=== PATIENT | female | born 1935 | race Caucasian/White ===

== ENCOUNTER 2016-10-24 17:20 | Emergency (ER) | payer MEDICARE, OTHER ==
[2016-10-24] MEDS ORDERED: Alum Hydroxide/Mag Hydroxide 15 ML, Lidocaine 2% 15 ML PO ONE ×2 (17:48)
[2016-10-24] MEDS ORDERED: Isosorbide Mononitrate 30 MG Tab.ER PO SCH (19:45)
[2016-10-24 19:54] VITALS: BP 158/68
--- NOTE | 2016-10-25 02:09 | ER ---
DATE SEEN: 10/24/2016 TIME SEEN: The patient was seen at 1745. CHIEF COMPLAINT: At 1630 hours today she had chest heaviness, onset an hour before coming to the ED. No radiation of this chest heaviness or pain to jaw, neck, arm or back. No lightheadedness, diaphoresis, diarrhea, back pain, leg pain, shortness of breath, coughing, history of long distance trip or recent surgery in the last 4 weeks. 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 She has hypertension, dyslipidemia, diabetes treated with metformin, fracture of left wrist. REVIEW OF SYSTEMS: HEENT: The patient denies headache, neck stiffness, compromise in vision, glaucoma. Rest of symptoms noted above. No cough. GI: Denies reflux, constipation, blood in the stool, black tarry stools, diarrhea, constipation. : Denies frequency, urgency, dysuria, loss of stool or urine; incontinence. MUSCULOSKELETAL: Denies musculoskeletal complaints, joint pains, muscle aches, myalgia. SOCIAL HISTORY: is . Nonsmoker and alcohol negative. No illicit drugs. PAST SURGICAL HISTORY: As noted above, fracture of left wrist. MEDICATIONS: 1. Vitamin D. 2. Flaxseed. 3. Lutein. 4. Metformin 500 mg b.i.d. 5. Cozaar 50 mg daily. 6. Cyanocobalamin 1000 mcg daily. 7. Fish oil. 8. Simvastatin 10 mg daily. PHYSICAL EXAMINATION: VITAL SIGNS: Blood pressure 156/68 after it was repeated, otherwise earlier was 167/81; heart rate 66 and regular; oxygen saturation 100% on room air; and respirations 16. GENERAL: Very pleasant, beautiful woman with an absolutely wonderful countenance and cheery disposition. HEENT: PERRLA intact. Pharynx without abnormality. No bruits in neck. No thyromegaly or masses in neck. No cervical adenopathy. LUNGS: Clear to auscultation without rales, rhonchi, or wheezes. HEART: S1, S2. No murmur. ABDOMEN: Soft. No irregularities. No abdominal discomfort. EXTREMITIES: Without abnormality. Deep tendon reflexes normal in upper and lower extremities, but hypoactive. NEUROLOGIC: Cranial nerves 2 through 12 intact. Oriented x3. Gait appropriate. Muscle strength upper and lower extremities. Speech appropriate. Thought content appropriate. DIAGNOSTIC STUDIES: EKG; sinus rhythm with nonspecific interventricular conduction defect. Chest x-ray, showing mild flattening of the diaphragms, more hyperaeration than anticipated for her age and she has never been a smoker; mild COPD. No evidence for infiltrate. Troponin is normal. CBC is normal with hemoglobin 12.3, white count 5800, normal differential. Sodium is slightly low at 134. She is not taking any water pills, but she is on Cozaar. Potassium 3.6, chloride 100, bicarb 27, creatinine 0.6, BUN 11. GFR greater than 66, and glucose reactive slightly elevated as it was 10/17/2013, today is 129, previously 142, this reflects her diabetes. Alkaline phosphate trace elevated 54. ASSESSMENT: 1. Chest pressure, possible atypical angina or stable angina. Trial of Imdur 30 mg tablet one given now and to use one daily, 20 tablets were given. Follow up with doctor in a week. If it is markedly worse, see the doctor earlier. 2. Status post subarachnoid hemorrhage. 3. Hypertension, treated. 4. Mild hyponatremia. Etiology may be secondary to salt restrictions. ADDITIONAL COMMENT: Patient discharged to follow up with MD 5-7 days. She takes probiotic daily. /[id number] MAEVE/DANI LEBLANC
--- NOTE | 2016-10-25 11:56 | CR ---
INDICATION: Chest heaviness. CHEST: Portable AP upright view of the chest was obtained 10/24/2016. No comparisons were available. The heart appeared prominent in size, the aorta tortuous with calcification in the arch. Overlying EKG leads are noted. Somewhat diminished bone density is suggested, compatible with osteoporosis. A definite active infiltrate or effusion was not identified. IMPRESSION: 1. No acute process. 2. ASHD. MTDD
== END 2016-10-24 20:00 | disposition home or self-care (01) ==
LOC: FB.ED 17:20
DX: R07.89 Other chest pain (principal); E87.1 Hypo-osmolality and hyponatremia
CPT/HCPCS: 36415; 71010; 80053; 84443; 84484; 85025; 85379; 93005; 99285; A9270; 99284

== ENCOUNTER 2019-02-25 14:09 | Emergency (ER) | payer OTHER, MEDICARE ==
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
[2019-02-25 17:55] VITALS: BP 160/72; PULSE 88
== END 2019-02-25 15:52 | disposition home or self-care (01) ==
LOC: FB.ED 14:09
DX: S40.012A Contusion of left shoulder, initial encounter (principal); S70.02XA Contusion of left hip, initial encounter; E11.9 Type 2 diabetes mellitus without complications; Z79.82 Long term (current) use of aspirin; Z79.899 Other long term (current) drug therapy; Z79.84 Long term (current) use of oral hypoglycemic drugs; Z86.73 Personal history of transient ischemic attack (TIA), and cerebral infarction without residual deficits; V43.52XA Car driver injured in collision with other type car in traffic accident, initial encounter
CPT/HCPCS: 36415; 71101-LT; 73502-LT; 81003; 82962; 85025; 99284-25

== ENCOUNTER 2019-03-07 05:55 | Inpatient (IN) | payer OTHER, MEDICARE ==
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
[2019-03-07] MEDS ORDERED: traMADol 50 MG Tab PO PRN (08:43)
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
[2019-03-07] MEDS: Naproxen 500 MG Tab PO SCH ×2 (09:27→21:12)
[2019-03-07] MEDS: Enoxaparin 40 MG/0.4 ML Syringe SUBCUT SCH (09:28)
[2019-03-07] MEDS: Lactobacillus Rhamnosus GG (Probiotic) Cap PO SCH (11:36)
[2019-03-07] MEDS: Fish Oil/Omega-3 Fatty Acids 1 Gm Cap PO SCH (11:36)
[2019-03-07] MEDS: Aspirin 81 MG Tab.EC PO SCH (11:36)
[2019-03-07] MEDS: Losartan 50 MG Tab PO SCH (11:36)
[2019-03-07] MEDS: Cholecalciferol (Vitamin D3) 25 MCG Tab PO SCH (11:36)
[2019-03-07] MEDS: Isosorbide Mononitrate 30 MG Tab.ER PO SCH (11:37)
[2019-03-07] MEDS: metFORMIN 500 MG Tab PO SCH ×2 (11:37→18:00)
[2019-03-07] MEDS: Cyanocobalamin (Vitamin B12) 1,000 MCG Tab PO SCH (11:37)
[2019-03-07] MEDS ORDERED: Insulin Lispro 100 Unit/ML 3 ML KwikPen SUBCUT SCH (12:00)
[2019-03-07] MEDS: Latanoprost 0.005% Ophth Soln 2.5 ML Bottle EYEBOTH SCH (21:13)
[2019-03-07] MEDS: Simvastatin 10 MG Tab PO SCH (21:14)
[2019-03-07] MEDS: Acetaminophen 500 MG Tab PO SCH (21:18)
[2019-03-08] MEDS: Acetaminophen 500 MG Tab PO SCH ×3 (06:17→21:23)
[2019-03-08] MEDS: Losartan 50 MG Tab PO SCH (08:54)
[2019-03-08] MEDS: metFORMIN 500 MG Tab PO SCH ×2 (08:54→17:59)
[2019-03-08] MEDS: Naproxen 500 MG Tab PO SCH ×2 (08:54→21:24)
[2019-03-08] MEDS: Isosorbide Mononitrate 30 MG Tab.ER PO SCH (08:55)
[2019-03-08] MEDS: Enoxaparin 40 MG/0.4 ML Syringe SUBCUT SCH (08:55)
[2019-03-08] MEDS: Lactobacillus Rhamnosus GG (Probiotic) Cap PO SCH (08:55)
[2019-03-08] MEDS: Aspirin 81 MG Tab.EC PO SCH (08:55)
[2019-03-08] MEDS: Fish Oil/Omega-3 Fatty Acids 1 Gm Cap PO SCH (08:55)
[2019-03-08] MEDS: Cyanocobalamin (Vitamin B12) 1,000 MCG Tab PO SCH (08:55)
[2019-03-08] MEDS: Cholecalciferol (Vitamin D3) 25 MCG Tab PO SCH (08:55)
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
[2019-03-08] MEDS: Latanoprost 0.005% Ophth Soln 2.5 ML Bottle EYEBOTH SCH (21:24)
[2019-03-08] MEDS: Simvastatin 10 MG Tab PO SCH (21:25)
[2019-03-09] MEDS: Acetaminophen 500 MG Tab PO SCH ×2 (05:16→12:43)
[2019-03-09] MEDS: Losartan 50 MG Tab PO SCH (08:44)
[2019-03-09] MEDS: metFORMIN 500 MG Tab PO SCH ×2 (08:44→18:20)
[2019-03-09] MEDS: Cholecalciferol (Vitamin D3) 25 MCG Tab PO SCH (08:45)
[2019-03-09] MEDS: Fish Oil/Omega-3 Fatty Acids 1 Gm Cap PO SCH (08:45)
[2019-03-09] MEDS: Naproxen 500 MG Tab PO SCH (08:45)
[2019-03-09] MEDS: Aspirin 81 MG Tab.EC PO SCH (08:45)
[2019-03-09] MEDS: Cyanocobalamin (Vitamin B12) 1,000 MCG Tab PO SCH (08:45)
[2019-03-09] MEDS: Isosorbide Mononitrate 30 MG Tab.ER PO SCH (08:45)
[2019-03-09] MEDS: Lactobacillus Rhamnosus GG (Probiotic) Cap PO SCH (08:45)
[2019-03-09 16:38] VITALS: BP 152/72; PULSE 67
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
== END 2019-03-09 19:10 | disposition home or self-care (01) | DRG 918 ==
LOC: FB.ED 05:55 → FB.MS 08:08
PROVIDERS: ADMIT Family Medicine; ATTEND Family Medicine
DX: T40.2X5A Adverse effect of other opioids, initial encounter (principal); R41.82 Altered mental status, unspecified; S32.9XXD Fracture of unspecified parts of lumbosacral spine and pelvis, subsequent encounter for fracture with routine healing; V89.2XXD Person injured in unspecified motor-vehicle accident, traffic, subsequent encounter; I10 Essential (primary) hypertension; E78.5 Hyperlipidemia, unspecified; E11.9 Type 2 diabetes mellitus without complications; Z86.73 Personal history of transient ischemic attack (TIA), and cerebral infarction without residual deficits; Z79.84 Long term (current) use of oral hypoglycemic drugs; Z79.82 Long term (current) use of aspirin; Z79.899 Other long term (current) drug therapy
CPT/HCPCS: 36415; 70450; 72125; 80048; 81001; 82962; 85025; 85610; 97161-GP; 99284-25; A9270-GY; J1650; J1815

== ENCOUNTER → 2022-05-24 | Day surgery (SDC) | payer MEDICARE, OTHER ==
[~2022-05-24] MED LIST: Lactated Ringers 1,000 ML IV PRN; acetaZOLAMIDE 500 MG Cap.ER PO ONE
== END ==
LOC: FB.SDS 06:00
PROVIDERS: ATTEND Ophthalmology
DX: E11.36 Type 2 diabetes mellitus with diabetic cataract (principal); H25.813 Combined forms of age-related cataract, bilateral; H40.1131 Primary open-angle glaucoma, bilateral, mild stage; H35.3131 Nonexudative age-related macular degeneration, bilateral, early dry stage; H40.1410 Capsular glaucoma with pseudoexfoliation of lens, right eye, stage unspecified; I10 Essential (primary) hypertension; K21.9 Gastro-esophageal reflux disease without esophagitis; M19.90 Unspecified osteoarthritis, unspecified site; E78.5 Hyperlipidemia, unspecified; Z86.39 Personal history of other endocrine, nutritional and metabolic disease; Z79.899 Other long term (current) drug therapy; Z88.8 Allergy status to other drugs, medicaments and biological substances; Z88.5 Allergy status to narcotic agent; Z90.49 Acquired absence of other specified parts of digestive tract; Z98.890 Other specified postprocedural states

== ENCOUNTER 2022-06-07 07:26 | Day surgery (SDC) | payer MEDICARE, OTHER ==
[~2022-06-07 07:26] MED LIST changes: -Lactated Ringers 1,000 ML IV PRN
[2022-06-07] MEDS ORDERED: Lactated Ringers 1,000 ML IV PRN (07:30)
[2022-06-07] MEDS ORDERED: Sodium Chloride 0.9% 10 ML Syringe FLUSH PRN (07:30)
[2022-06-07 08:15] VITALS: BP 150/63; PULSE 64
[2022-06-07] MEDS ORDERED: Midazolam 1 MG/ML 2 ML SDV IVPUSH ONE (09:20)
[2022-06-07] MEDS ORDERED: fentaNYL 100 MCG/2 ML SDV IVPUSH ONE (09:20)
[2022-06-07] MEDS ORDERED: acetaZOLAMIDE 500 MG Cap.ER PO ONE (09:30)
== END 2022-06-07 10:32 | disposition home or self-care (01) ==
LOC: FB.SDS 07:26
PROVIDERS: ATTEND Ophthalmology
DX: E11.36 Type 2 diabetes mellitus with diabetic cataract (principal); H25.813 Combined forms of age-related cataract, bilateral; H40.1131 Primary open-angle glaucoma, bilateral, mild stage; H35.3131 Nonexudative age-related macular degeneration, bilateral, early dry stage; I10 Essential (primary) hypertension; K21.9 Gastro-esophageal reflux disease without esophagitis; E78.5 Hyperlipidemia, unspecified; H91.93 Unspecified hearing loss, bilateral; N32.81 Overactive bladder; M19.90 Unspecified osteoarthritis, unspecified site; F17.200 Nicotine dependence, unspecified, uncomplicated; Z79.899 Other long term (current) drug therapy; Z88.8 Allergy status to other drugs, medicaments and biological substances; Z88.5 Allergy status to narcotic agent; Z98.890 Other specified postprocedural states; Z90.49 Acquired absence of other specified parts of digestive tract
CPT/HCPCS: 00142-QZ; A9270-GY; J2250; J3010; J3490; J7120; V2632

== ENCOUNTER 2024-02-28 00:42 | Inpatient (IN) | payer MEDICARE, OTHER ==
[2024-02-28 01:43] LABS: A/G RATIO 1.3; ALANINE AMINOTRANSFERASE,ALT 16 U/L (12-36); ALKALINE PHOSPHATASE 92 IU/L (56-112); ASPARTATE AMNIOTRANSFERASE,AST 19 IU/L (5-25); BILIRUBIN TOTAL 0.6 mg/dL (0.1-1.3); BLOOD UREA NITROGEN,BUN 14 mg/dL (7-18); BUN/CREATININE RATIO 15.6 (9-20); CALCIUM 9.1 mg/dL (8.6-10.2); CARBON DIOXIDE,CO2 21 mmol/L (21-32); CREATININE 0.9 mg/dL (0.55-1.02); ESTIMATED GFR 61 mL/min (>60); GLUCOSE RANDOM 133 mg/dL (80-116); POTASSIUM,K 4.4 mmol/L (3.5-5.3); PROTEIN TOTAL,TP 7.2 g/dL (6.0-8.0)
[2024-02-28 01:50] LABS: TROPONIN I 19.5 pg/mL (4.0-60.3)
[2024-02-28 01:53] LABS: BASOPHILS PERCENT AUTO 0.4 % (0.2-1.5); EOSINOPHILS ABSOLUTE AUTO 0.1 x10-3/uL (0.0-0.8); EOSINOPHILS PERCENT AUTO 1.3 % (0.6-8.1); HEMOGLOBIN 12.8 g/dL (11.4-15.5); LYMPHOCYTES PERCENT AUTO 9.4 % (18.4-52.1); MEAN CORPUSCULAR HEMOGLOBIN 29.3 pg (23.9-33.9); MEAN CORPUSCULAR HGB CONC 33.8 g/dL (31.9-34.8); MEAN CORPUSCULAR VOLUME 86.8 fL (76.7-100.5); MONOCYTES ABSOLUTE AUTO 0.8 x10-3/uL (0.3-1.0); NEUTROPHILS ABSOLUTE AUTO 8.4 x10-3/uL (1.5-6.3); NEUTROPHILS PERCENT AUTO 80.9 % (30.8-76.2); PLATELET COUNT,PLT 302 x10(3)uL (151-488); RED BLOOD CELL COUNT 4.38 x10(6)uL (3.60-5.20); RED CELL DISTRIBUTION WIDTH 13.1 % (12.3-16.5); WHITE BLOOD CELL COUNT,WBC 10.4 x10-3/uL (3.0-10.3)
[2024-02-28] MEDS: Ondansetron 4 MG/2 ML SDV IVPUSH ONE ×2 (01:56→02:50)
[2024-02-28 01:57] LABS: CHLORIDE,CL 86 mmol/L (100-110); SODIUM,NA 118 mmol/L (135-145)
[2024-02-28] MEDS: Sodium Chloride 0.9% 1,000 ML IV SCH ×2 (01:57→03:10)
[2024-02-28 02:09] LABS: LACTIC ACID 0.7 mmol/L (0.4-2.0)
[2024-02-28] MEDS ORDERED: Acetaminophen 325 MG Tab PO PRN (02:22)
[2024-02-28] MEDS: Meclizine 25 MG Tab PO PRN (03:14)
[2024-02-28] MEDS: Labetalol 20 MG/4 ML Syringe IVPUSH ONE (03:16)
[2024-02-28 03:26] LABS: BILIRUBIN,URINE NEGATIVE (NEGATIVE); GLUCOSE,URINE NORMAL (NORMAL); KETONES,URINE 15 mg/dL (NEGATIVE); LEUKOCYTE ESTERASE,URINE NEGATIVE (NEGATIVE); NITRITE,URINE NEGATIVE (NEGATIVE); OCCULT BLOOD,URINE NEGATIVE (NEGATIVE); PROTEIN,URINE NEGATIVE (NEGATIVE); UROBILINOGEN,URINE NORMAL (NEGATIVE)
[2024-02-28 03:27] LABS: APPEARANCE,URINE CLEAR (CLEAR); COLOR,URINE YELLOW (YELLOW)
[2024-02-28] MEDS ORDERED: Ondansetron 4 MG/2 ML SDV IV PRN (05:20)
[2024-02-28 06:44] LABS: BLOOD UREA NITROGEN,BUN 11 mg/dL (7-18); BUN/CREATININE RATIO 12.2 (9-20); CALCIUM 8.3 mg/dL (8.6-10.2); CARBON DIOXIDE,CO2 24 mmol/L (21-32); CHLORIDE,CL 91 mmol/L (100-110); CREATININE 0.9 mg/dL (0.55-1.02); ESTIMATED GFR 61 mL/min (>60); GLUCOSE RANDOM 129 mg/dL (80-116); POTASSIUM,K 4.4 mmol/L (3.5-5.3); SODIUM,NA 122 mmol/L (135-145)
[2024-02-28] MEDS ORDERED: Losartan 50 MG Tab PO SCH (09:00)
[2024-02-28] MEDS: Enoxaparin 40 MG/0.4 ML Syringe SUBCUT SCH (09:22)
[2024-02-28] MEDS: Isosorbide Mononitrate 30 MG Tab.ER PO SCH (09:22)
[2024-02-28] MEDS: Oxybutynin 5 MG Tab PO SCH (09:22)
[2024-02-28] MEDS: Sennosides/Docusate Sodium 50-8.6 MG Tab PO PRN (09:31)
[2024-02-28] MEDS: Losartan 25 MG Tab PO SCH (14:59)
[2024-02-28] MEDS: Saccharomyces Boulardii (Probiotic) 250 MG Cap PO SCH (17:08)
[2024-02-28] MEDS: Latanoprost 0.005% Ophth Soln 2.5 ML Bottle EYEBOTH SCH (20:37)
[2024-02-29 06:42] LABS: BASOPHILS PERCENT AUTO 0.3 % (0.2-1.5); EOSINOPHILS ABSOLUTE AUTO 0.2 x10-3/uL (0.0-0.8); EOSINOPHILS PERCENT AUTO 4.1 % (0.6-8.1); HEMATOCRIT 32.6 % (34.2-48.2); HEMOGLOBIN 11.3 g/dL (11.4-15.5); LYMPHOCYTES ABSOLUTE AUTO 0.9 x10-3/uL (1.0-4.4); LYMPHOCYTES PERCENT AUTO 16.6 % (18.4-52.1); MEAN CORPUSCULAR HEMOGLOBIN 30.2 pg (23.9-33.9); MEAN CORPUSCULAR HGB CONC 34.7 g/dL (31.9-34.8); MEAN PLATELET VOLUME 7.5 fL (7.1-12.4); MONOCYTES ABSOLUTE AUTO 0.6 x10-3/uL (0.3-1.0); MONOCYTES PERCENT AUTO 12.5 % (4.4-15.7); NEUTROPHILS ABSOLUTE AUTO 3.4 x10-3/uL (1.5-6.3); NEUTROPHILS PERCENT AUTO 66.5 % (30.8-76.2); PLATELET COUNT,PLT 257 x10(3)uL (151-488); RED BLOOD CELL COUNT 3.75 x10(6)uL (3.60-5.20); RED CELL DISTRIBUTION WIDTH 13.3 % (12.3-16.5); WHITE BLOOD CELL COUNT,WBC 5.2 x10-3/uL (3.0-10.3)
[2024-02-29 06:52] LABS: BLOOD UREA NITROGEN,BUN 8 mg/dL (7-18); CALCIUM 8.3 mg/dL (8.6-10.2); CARBON DIOXIDE,CO2 25 mmol/L (21-32); CHLORIDE,CL 102 mmol/L (100-110); CREATININE 0.8 mg/dL (0.55-1.02); EST CRCL DRUG DOSING (CG) 43.76 mL/min; ESTIMATED GFR 70 mL/min (>60); GLUCOSE RANDOM 96 mg/dL (80-116); POTASSIUM,K 4.3 mmol/L (3.5-5.3); SODIUM,NA 132 mmol/L (135-145)
[2024-02-29] MEDS: Bisacodyl 5 MG Tab PO PRN (09:52)
[2024-02-29] MEDS: Dextrose 5% in Water 1,000 ML IV SCH (10:02)
[2024-02-29] MEDS: Sodium Chloride 0.9% 1,000 ML IV SCH (13:10)
[2024-02-29] MEDS: Bisacodyl 5 MG Tab PO ONE (14:51)
[2024-02-29] MEDS: Sulfamethoxazole/Trimethoprim 800-160 MG Tab PO SCH (14:51)
[2024-03-01 07:46] LABS: BASOPHILS PERCENT AUTO 0.3 % (0.2-1.5); EOSINOPHILS ABSOLUTE AUTO 0.4 x10-3/uL (0.0-0.8); HEMATOCRIT 33.9 % (34.2-48.2); HEMOGLOBIN 11.8 g/dL (11.4-15.5); LYMPHOCYTES ABSOLUTE AUTO 0.9 x10-3/uL (1.0-4.4); LYMPHOCYTES PERCENT AUTO 17.9 % (18.4-52.1); MEAN CORPUSCULAR HEMOGLOBIN 30.3 pg (23.9-33.9); MEAN CORPUSCULAR HGB CONC 34.8 g/dL (31.9-34.8); MEAN PLATELET VOLUME 7.3 fL (7.1-12.4); MONOCYTES ABSOLUTE AUTO 0.7 x10-3/uL (0.3-1.0); MONOCYTES PERCENT AUTO 14.3 % (4.4-15.7); NEUTROPHILS PERCENT AUTO 60.5 % (30.8-76.2); PLATELET COUNT,PLT 259 x10(3)uL (151-488); RED BLOOD CELL COUNT 3.89 x10(6)uL (3.60-5.20); RED CELL DISTRIBUTION WIDTH 13.4 % (12.3-16.5)
[2024-03-01 11:41] LABS: BLOOD UREA NITROGEN,BUN 7 mg/dL (7-18); CALCIUM 8.4 mg/dL (8.6-10.2); CARBON DIOXIDE,CO2 24 mmol/L (21-32); CHLORIDE,CL 101 mmol/L (100-110); CREATININE 0.7 mg/dL (0.55-1.02); EST CRCL DRUG DOSING (CG) 50.02 mL/min; ESTIMATED GFR 83 mL/min (>60); GLUCOSE RANDOM 94 mg/dL (80-116); SODIUM,NA 133 mmol/L (135-145)
[2024-03-01] MEDS: Polyethylene Glycol 3350 Powder 17 GM Packet PO SCH (19:30)
[2024-03-02 06:52] LABS: BASOPHILS PERCENT AUTO 0.3 % (0.2-1.5); EOSINOPHILS ABSOLUTE AUTO 0.4 x10-3/uL (0.0-0.8); EOSINOPHILS PERCENT AUTO 7.5 % (0.6-8.1); HEMATOCRIT 33.2 % (34.2-48.2); HEMOGLOBIN 11.4 g/dL (11.4-15.5); LYMPHOCYTES ABSOLUTE AUTO 1.3 x10-3/uL (1.0-4.4); LYMPHOCYTES PERCENT AUTO 27.1 % (18.4-52.1); MEAN CORPUSCULAR HEMOGLOBIN 29.7 pg (23.9-33.9); MEAN CORPUSCULAR HGB CONC 34.3 g/dL (31.9-34.8); MEAN CORPUSCULAR VOLUME 86.8 fL (76.7-100.5); MEAN PLATELET VOLUME 7.4 fL (7.1-12.4); MONOCYTES ABSOLUTE AUTO 0.6 x10-3/uL (0.3-1.0); MONOCYTES PERCENT AUTO 12.4 % (4.4-15.7); NEUTROPHILS ABSOLUTE AUTO 2.6 x10-3/uL (1.5-6.3); NEUTROPHILS PERCENT AUTO 52.7 % (30.8-76.2); PLATELET COUNT,PLT 253 x10(3)uL (151-488); RED BLOOD CELL COUNT 3.82 x10(6)uL (3.60-5.20); RED CELL DISTRIBUTION WIDTH 13.4 % (12.3-16.5)
[2024-03-02 06:59] LABS: BLOOD UREA NITROGEN,BUN 8 mg/dL (7-18); BUN/CREATININE RATIO 11.4 (9-20); CALCIUM 8.7 mg/dL (8.6-10.2); CARBON DIOXIDE,CO2 25 mmol/L (21-32); CHLORIDE,CL 101 mmol/L (100-110); CREATININE 0.7 mg/dL (0.55-1.02); EST CRCL DRUG DOSING (CG) 50.02 mL/min; ESTIMATED GFR 83 mL/min (>60); GLUCOSE RANDOM 92 mg/dL (80-116); POTASSIUM,K 4.3 mmol/L (3.5-5.3); SODIUM,NA 133 mmol/L (135-145)
[2024-03-02] MEDS: Lactulose Soln 10 GM/15 ML 15 ML UD Cup PO ONE (12:27)
[2024-03-03 06:42] LABS: BASOPHILS PERCENT AUTO 0.3 % (0.2-1.5); EOSINOPHILS ABSOLUTE AUTO 0.3 x10-3/uL (0.0-0.8); EOSINOPHILS PERCENT AUTO 6.7 % (0.6-8.1); HEMATOCRIT 33.1 % (34.2-48.2); HEMOGLOBIN 11.3 g/dL (11.4-15.5); LYMPHOCYTES ABSOLUTE AUTO 1.2 x10-3/uL (1.0-4.4); LYMPHOCYTES PERCENT AUTO 25.6 % (18.4-52.1); MEAN CORPUSCULAR HEMOGLOBIN 29.8 pg (23.9-33.9); MEAN CORPUSCULAR VOLUME 87.6 fL (76.7-100.5); MEAN PLATELET VOLUME 7.3 fL (7.1-12.4); MONOCYTES ABSOLUTE AUTO 0.5 x10-3/uL (0.3-1.0); MONOCYTES PERCENT AUTO 11.3 % (4.4-15.7); NEUTROPHILS ABSOLUTE AUTO 2.7 x10-3/uL (1.5-6.3); NEUTROPHILS PERCENT AUTO 56.1 % (30.8-76.2); PLATELET COUNT,PLT 245 x10(3)uL (151-488); RED BLOOD CELL COUNT 3.78 x10(6)uL (3.60-5.20); RED CELL DISTRIBUTION WIDTH 13.6 % (12.3-16.5); WHITE BLOOD CELL COUNT,WBC 4.7 x10-3/uL (3.0-10.3)
[2024-03-03 06:45] LABS: BLOOD UREA NITROGEN,BUN 8 mg/dL (7-18); BUN/CREATININE RATIO 11.4 (9-20); CALCIUM 8.5 mg/dL (8.6-10.2); CARBON DIOXIDE,CO2 28 mmol/L (21-32); CHLORIDE,CL 100 mmol/L (100-110); CREATININE 0.7 mg/dL (0.55-1.02); EST CRCL DRUG DOSING (CG) 50.02 mL/min; ESTIMATED GFR 83 mL/min (>60); GLUCOSE RANDOM 103 mg/dL (80-116); POTASSIUM,K 4.4 mmol/L (3.5-5.3); SODIUM,NA 133 mmol/L (135-145)
[2024-03-03] MEDS: Sodium Chloride 0.9% 10 ML Syringe FLUSH PRN (08:12)
[2024-03-03] MEDS: Glycerin Adult 2 GM Supp RECTAL ONE (11:13)
[2024-03-03] MEDS: Bisacodyl 10 MG Supp RECTAL ONE (11:29)
[2024-03-03] MEDS: Lactulose Soln 10 GM/15 ML 30 ML UD Cup PO PRN (18:34)
[2024-03-04 07:07] LABS: BLOOD UREA NITROGEN,BUN 10 mg/dL (7-18); BUN/CREATININE RATIO 14.3 (9-20); CALCIUM 8.4 mg/dL (8.6-10.2); CARBON DIOXIDE,CO2 28 mmol/L (21-32); CHLORIDE,CL 100 mmol/L (100-110); CREATININE 0.7 mg/dL (0.55-1.02); EST CRCL DRUG DOSING (CG) 50.02 mL/min; ESTIMATED GFR 83 mL/min (>60); GLUCOSE RANDOM 105 mg/dL (80-116); POTASSIUM,K 4.2 mmol/L (3.5-5.3); SODIUM,NA 134 mmol/L (135-145)
[2024-03-04 14:44] VITALS: BP 101/50; PULSE 80
== END 2024-03-04 16:15 | disposition home health service (06) | DRG 641 ==
LOC: FB.ED 00:42 → FB.MS 02:13 → OBSVTOIN 02:13
PROVIDERS: ADMIT Emergency Medicine; ATTEND Family Medicine
DX: E87.1 Hypo-osmolality and hyponatremia (principal); N39.0 Urinary tract infection, site not specified; G45.9 Transient cerebral ischemic attack, unspecified; E11.9 Type 2 diabetes mellitus without complications; Z66 Do not resuscitate; R29.6 Repeated falls; Z88.5 Allergy status to narcotic agent; E87.8 Other disorders of electrolyte and fluid balance, not elsewhere classified; I10 Essential (primary) hypertension; N32.81 Overactive bladder; E11.39 Type 2 diabetes mellitus with other diabetic ophthalmic complication; H42 Glaucoma in diseases classified elsewhere; H35.30 Unspecified macular degeneration; E86.1 Hypovolemia; K59.09 Other constipation; Z88.8 Allergy status to other drugs, medicaments and biological substances; Z79.899 Other long term (current) drug therapy; Z79.2 Long term (current) use of antibiotics; Z98.49 Cataract extraction status, unspecified eye
CPT/HCPCS: 36415; 71045; 80053; 83605; 83880; 84484; 85025; 96361; 96374; 99285; J2405; J7030; 70551; 74018; 74019; 80048; 81003; 83735; 84295; 93005; 93010; 94150; 96376; 97112-GP; 97161-GP; 97165-GO; 97530-GP; 99222; 99231; 99232; 99238; A9270-GY; J1650; J1920; J3490; J7060; U0002